=== PATIENT | female | born 1995 | race Caucasian/White ===

== ENCOUNTER 2018-04-23 03:37 | Inpatient (IN) | payer MEDICAID, OTHER, SELFPAY ==
[2018-04-23 04:17] VITALS: BMI 25.9
[2018-04-23] MEDS ORDERED: Lidocaine 1% (PF) 30 ML VIAL SC PRN (05:00)
[2018-04-23] MEDS ORDERED: Ondansetron PF 4 MG/2 ML Vial IVP PRN (05:00)
[2018-04-23] MEDS ORDERED: Promethazine HCl 25 MG/ML VIAL IM PRN (05:00)
--- NOTE | 2018-04-23 05:04 | PDOC.FPROB ---
FMR OB H&P: HPI - History of Present Illness Chief Complaint: Contractions and LOF History of Present Illness: This is a 22 yo at 40.3 who presents to L&D with a cc of contractions and LOF. She states the contractions started at ~0100 this morning and are strong. She reports LOF at ~0200. She denies vaginal bleeding, chest pain, trouble breathing, nausea, or vomiting. She denies any complications during her . FMR OB H&P: Current - Care : 1 Para: 0 Gestational age: 40.3 Due date: 04/20/18 Dating Criteria: LMP c/w 10.4 wk US - OB Labs Blood type: O RH: positive Antibody Screen: negative HIV: negative RPR: negative HepBsAg: negative Rubella: immune GBS: negative FMR OB H&P: History - Past Medical History PMH: none - OB History OB History: No complications - Social History Social History: Denies D/A/T - Family History Family History: Negative FMR OB H&P: Medications - Current Home Medications: Medication Instructions Recorded Confirmed Type Ferrous Sulfate [Iron] 325 mg PO DAILY 04/23/18 04/23/18 History 21/Iron Fu/Folic Acid 1 tablet PO DAILY 04/23/18 04/23/18 History [ Complete Caplet] Ranitidine HCl [Heartburn Relief 150 mg PO DAILY 04/23/18 04/23/18 History 150] Allergies/Adverse Reactions: Allergies Allergy/AdvReac Type Severity Reaction Status Date / Time No Known Allergies Allergy Verified 04/23/18 04:06 FMR OB H&P: ROS - Review of Systems General: denies: fever/chills, weight/appetite/sleep changes Eyes: denies: eye pain, vision changes ENT: denies: nasal congestion, rhinorrhea Cardiovascular: denies: chest pain, palpitation Respiratory: denies: cough, shortness of breath Gastrointestinal: denies: abdominal pain, indigestion, nausea, vomiting Genitourinary (Female): reports: contractions. denies: incontinence, dysuria Musculoskeletal: denies: pain, stiffness Neurologic: denies: numbness, syncope, loss of counsciousness Integumentary: denies: itching, rash Psychological: denies: depression, anxiety FMR OB H&P: Vital Signs - Maternal Vital signs: Vital Signs - First Documented Temp Pulse Resp BP 98.2 F 81 18 126/75 04/23/18 04:03 04/23/18 04:03 04/23/18 04:03 04/23/18 04:03 - Heart Tones Baseline: 140 Variability: moderate Acceleration: present Deceleration: absent Category: category 1 [place] contractions every: 5-7 minutes FMR OB H&P: Physical Exam - Physical Exam General: NAD, awake, alert and oriented HEENT: normocephalic and atraumatic, EOMI, MMM Neck: FROM, no JVD Chest: non-tender to palpation, no lesions Heart: RRR, normal S1/S2, no murmurs/rubs/gallops, pulses present General: CTAB, no respiratory distress, good air movement, no wheezing Abdomen: soft, gravid, non-tender, bowel sound present Musculoskeletal: pulses present, FROM in all four extremities Neurological: cranial nerves II through XII intact Skin: no rash, good tugor Lymphatic: no unusual bruising or bleeding, no purpura Psychiatric: intact recent and remote memory, good judgement and insight, normal mood and affect - Pelvic Exam SVE: 1/100/-2 with copious clear fluid during check Borrego score: 5 FMR OB H&P: A/P - Problem List (1) Term Current Visit: Yes Status: Acute Code(s): Z34.80 - ENCOUNTER FOR SUPRVSN OF NORMAL , UNSP TRIMESTER Assessment and Plan: This is a 22 yo at 40.3 by LMP c/W 10.4 wk US -Pt. is admitted to L&D. Pt. was 1/100/-2 at 04:23. Baseline FHTs were 140 with a cat 1 strip. Contractions are currently every 5-7 minutes. We will plan to let her labor and recheck in 3-4 hours. If she has not progressed or continues to have inadequate contractions, we will begin augmenting her labor with pitocin. Discussion: Date/Time: 04/23/18 3247 This H&P was discussed with Dr. Middleton and Dr. Oreilly who agree with the above documentation and plan. Attending Addendum - Attending Addendum Date/Time: 04/23/18 0346 I evaluated the patient and discussed the management with Dr. Redmond. at 40 weeks with SROM at 2AM, now with [facility]. GBS negative. Will admit, augment if needed. I agree with the History, Examination, Assessment and Plan documented above.
[2018-04-23 05:17] LABS: Mean Corpuscular HGB CONC 32.4 g/dL (32.0-36.0); Mean Corpuscular Hemoglobin 30.6 pg (25.0-35.0); Mean Corpuscular Volume 94.5 fL (78.0-98.0); Mean Platelet Volume 7.8 fL (7.4-10.4); Platelet Count 197 thou/uL (130-400); RBC Distribution Width 12.5 % (11.5-14.5); Red Blood Cell (RBC) Count 4.24 mill/uL (4.00-5.20); White Blood Cell (WBC) Count 10.2 thou/uL (4.8-10.8)
[2018-04-23] MEDS: Lactated Ringer's 1,000 ML IV SCH ×2 (07:00→12:37)
--- NOTE | 2018-04-23 08:39 | PDOC.LDPN ---
Labor & Delivery Progress Note - Subjective Subjective: painful contractions - Objective Vital signs reviewed and normal: yes General: breathing through contractions Uterine fundus: non tender Dilation: 3 Effacement: 100% Station: -2 FHT: category 1 (140/moderate/+ accels/no decels) [place] contractions every: 5-7min - Assessment (1) Term Code(s): Z34.80 - ENCOUNTER FOR SUPRVSN OF NORMAL , UNSP TRIMESTER Current Visit: Yes Status: Acute Plan: labor augmentation -: 22 yo at 40.3 by LMP c/w 10.4wk sIUP - SROM @0200 04/23/18, clear fluid - last cervical check /-2 @0830 - FHTs Cat 1 rate 140 - Will start Pitocin for labor augmentation as contractions are currently irregular - Starting Stadol for pain control. Pt declined epidural. - Continue serial cervical checks with recheck in 2 hours Rubella Non-immune - Plan for MMR pp RPR + with neg T pallidum antibodies x2 Previous SGA fetus - 17%tile @32wks. 29%tile @36.2wks Anemia of - On iron supplementation - H&H:
[2018-04-23] MEDS ORDERED: NS w/ Oxytocin 10 units 500 ML IV SCH (09:00)
[2018-04-23] MEDS ORDERED: Butorphanol Tartrate 1 MG/ML VIAL SLOW IVP PRN (09:30)
[2018-04-23] MEDS ORDERED: Butorphanol Tartrate 1 MG/ML VIAL ONE (09:33)
--- NOTE | 2018-04-23 10:35 | PDOC.LDPN ---
Labor & Delivery Progress Note - Subjective Subjective: painful contractions - Objective Vital signs reviewed and normal: yes General: breathing through contractions Uterine fundus: non tender Dilation: 4 Effacement: 100% Station: -2 FHT: category 1 (150/moderate/+ accels/no decels) [place] contractions every: 2-4min AROM: clear fluid - Assessment (1) Term Code(s): Z34.80 - ENCOUNTER FOR SUPRVSN OF NORMAL , UNSP TRIMESTER Current Visit: Yes Status: Acute Plan: continue plan of care, labor augmentation -: 22 yo at 40.3 by LMP c/w 10.4wk US sIUP - SROM @0200 04/23/18, clear fluid - last cervical check /-2 @1030 - FHTs Cat 1 rate 150 - Continue Pitocin for labor augmentation - Continue Stadol for pain control. Pt declined epidural. - Continue serial cervical checks with recheck in 2 hours Rubella Non-immune - Plan for MMR pp RPR + with neg T pallidum antibodies x2 Previous SGA fetus - 17%tile @32wks. 29%tile @36.2wks Anemia of - On iron supplementation - H&H:
--- NOTE | 2018-04-23 12:28 | PDOC.LDPN ---
Labor & Delivery Progress Note - Subjective Subjective: painful contractions - Objective Vital signs reviewed and normal: yes General: breathing through contractions Uterine fundus: non tender Dilation: 8 Effacement: 100% Station: 0 FHT: category 1 (130/moderate/+ accels/no decels) [place] contractions every: 2min AROM: clear fluid - Assessment (1) Term Code(s): Z34.80 - ENCOUNTER FOR SUPRVSN OF NORMAL , UNSP TRIMESTER Current Visit: Yes Status: Acute Plan: continue plan of care, labor augmentation -: 22 yo at 40.3 by LMP c/w 10.4wk sIUP - SROM @0200 04/23/18, clear fluid - last cervical check 100/0 @1230 - FHTs Cat 1 rate 130 - Continue Pitocin for labor augmentation - Continue Stadol for pain control. Pt declined epidural. - Continue serial cervical checks with recheck in 1 hour Rubella Non-immune - Plan for MMR pp RPR + with neg T pallidum antibodies x2 Previous SGA fetus - 17%tile @32wks. 29%tile @36.2wks Anemia of - On iron supplementation - H&H:
[2018-04-23] MEDS: NS / Oxytocin 40 units/1000ml 1,000 ML IV PRN ×2 (14:22→15:34)
--- NOTE | 2018-04-23 14:33 | PDOC.OPDEL ---
OB Operative/Delivery Note Delivery Dr/Surgeon: Dr Montague/Dr Aggarwal Assist: Attending: Dr Landa Pre-Delivery Diagnosis: active labor Procedure/Post Delivery Dx: spontaneous vaginal delivery Weeks gestation: 40 (40.3) Anesthesia: none - Additional Findings/Plan Placenta delivered: spontaneous Repaired Obstetrical Laceration: other (1st degree, no repair) Post delivery plan: routine recovery <Norma Montague - Last Filed: 04/23/18 14:33> Delivery Dr/Surgeon: <Juan Landa - Last Filed: 04/24/18 08:24> Attending Addendum - Attending Addendum Date/Time: 04/24/18 0820 I was present for and supervised the entire second and third stages of labor. PT delivered a female infant on 04/23/18 at 14:14 by uncomplicated tsvd. [id number]/ [id number]. Placenta delivered spontaneously followed by pitocin infustion. QBL was 180cc. There was a 1' perineal laceration hemostatic unrepaired. Dr Juares was the resident delivering. Counts were correct. Mother and baby were stable in the room in the immediate post . <Juan Landa - Last Filed: 04/24/18 08:24>
[2018-04-23] MEDS ORDERED: Milk Of Magnesia 30 ML UDCUP PO PRN (17:29)
[2018-04-23] MEDS ORDERED: Bisacodyl 10 MG SUPP PR PRN (17:29)
[2018-04-23] MEDS ORDERED: NS / Oxytocin 40 units/1000ml 1,000 ML IV SCH (17:29)
[2018-04-23] MEDS: Ferrous Sulfate 325 MG TAB PO SCH (18:33)
[2018-04-23] MEDS: Ibuprofen 800 MG TAB PO SCH (18:50)
[2018-04-23] MEDS: Docusate Calcium (SURFAK) 240 MG CAP PO SCH (22:06)
[2018-04-24] MEDS: Ibuprofen 800 MG TAB PO SCH ×3 (03:12→21:57)
--- NOTE | 2018-04-24 06:52 | PDOC.PP ---
Post Progress Note Post Day #: 1 Subjective: 22 yo who delivered ARABELLAA female @40.3 by on 04/24/18 at 1414. Pain controlled with Ibuprofen. Would like to try ice packs today. . Patient is ambulating, tolerating PO diet, voiding. Reports 5 pads with lochia since delivery. PO intake tolerated: yes Flatus: yes Ambulation: yes Vital Signs (12 hours) Temp Pulse Resp BP Pulse Ox 04/24/18 04:45 98.6 F 75 18 101/58 L 04/24/18 00:10 98.4 F 83 18 101/58 L 04/23/18 20:35 98.8 F 78 18 120/58 L 100 04/23/18 18:50 99.0 F 78 16 115/58 L 98 Weight Weight 64.41 kg - Physical Examination General: NAD Cardiovascular: no m/r/g, RRR Respiratory: clear to auscultation bilaterally, non-labored breathing Abdominal: + bowel sounds, lochia, appropriately TTP Deviation from normal: Unable to palpate fundus due to patient tolerance Psychiatric: A&Ox3, normal affect Result Diagrams: 04/23/18 04:57 Additional Labs: Post Labs Blood Type O POSITIVE 04/23/18 04:57 (1) Normal course Code(s): Z39.2 - ENCOUNTER FOR ROUTINE FOLLOW-UP Status: Acute - Assessment/Plan 22 yo who delivered MARGARETH female @40.3 by on 04/24/18 at 1414 Term s/p delivery - Encourage , ordered lanolin cream PRN - Continue Routine PP Care Rubella Non-immune - Plan for MMR pp RPR + with neg T pallidum antibodies x2
[2018-04-24] MEDS ORDERED: Lanolin Ointment 7 GM TUBE TOP PRN (08:19)
[2018-04-24] MEDS ORDERED: Lanolin Ointment 7 GM TUBE TOP SCH (09:00)
[2018-04-24] MEDS ORDERED: Adacel (T-DAP) 0.5 ML VIAL IM ONE (09:00)
[2018-04-24] MEDS: Ferrous Sulfate 325 MG TAB PO SCH ×2 (09:26→16:49)
[2018-04-24] MEDS: Docusate Calcium (SURFAK) 240 MG CAP PO SCH ×2 (09:37→21:57)
--- NOTE | 2018-04-24 13:52 | OP-2 ---
DELIVERING PHYSICIAN: Norma Montague, PGY-1; Yessenia Aggarwal, PGY-2. ATTENDING: Dr. Juan Landa. PROCEDURE: Spontaneous vaginal delivery. ANESTHESIA: None. EBL: 180 mL. PREOPERATIVE DIAGNOSES: 1. Term intrauterine . 2. Rubella nonimmune. 3. RPR positive with negative treponema pallidum antibodies x2. 4. Anemia of . POSTOPERATIVE DIAGNOSES: 1. Term intrauterine , delivered. 2. Rubella nonimmune. 3. RPR positive with negative treponema pallidum antibodies x2. 4. Anemia of . INDICATIONS: A 22-year-old female G1, P0, presents in active labor. DELIVERY NOTE: This is a 22-year-old female, G1, P0, now G1, P1 at 40.3 weeks, who delivered a viable female infant at 1414 on 04/23/2018. Following an uneventful antepartum course, a vigorous female was delivered over an intact perineum in the occiput anterior position, anterior shoulder and then remainder of the body delivered. No nuchal cord. The head was held down and mouth and nares were bulb suctioned. Cord clamped after delayed cord clamping and cut and cord blood collected. Placenta delivered intact in the [place] position with a 3-vessel cord noted. Fundal massage was performed and the fundus was firm. The cervix and vagina were inspected and found to have first degree midline perineal laceration and a small periurethral laceration, both were hemostatic and did not require repair. went to nursery in good condition for routine care. Apgars were 9 and 9 at 1 and 5 minutes respectively. The patient tolerated delivery well and went to after routine recovery care. I was present to supervise the entire second and third stages of labor. I agree with the above documentation. GAB
[2018-04-24 19:26] LABS: HBSAg Index 0.18 S/CO (0-0.99); Hep B Surf Ag Non-Reactive S/CO (NonReactive)
[2018-04-25] MEDS: Ibuprofen 800 MG TAB PO SCH ×2 (05:13→14:12)
--- NOTE | 2018-04-25 06:42 | PDOC.PP ---
Post Progress Note Post Day #: 2 Subjective: Pt is feeling well, voiding/stooling, reports breast feeding is going well. Pain is controlled with Ibuprofen. No questions or concerns this AM. PO intake tolerated: yes Flatus: yes Ambulation: yes Vital Signs (12 hours) Temp Pulse Resp BP Pulse Ox 04/24/18 20:00 98.6 F 77 16 117/59 L 98 Weight Weight 64.41 kg - Physical Examination General: NAD Cardiovascular: no m/r/g, RRR Respiratory: clear to auscultation bilaterally, non-labored breathing Abdominal: + bowel sounds, lochia, appropriately TTP Neurological: no gross focal deficits Psychiatric: A&Ox3, normal affect Result Diagrams: 04/23/18 04:57 Additional Labs: Post Labs Blood Type O POSITIVE 04/23/18 04:57 Hep Bs Antigen Non-Reactive S/CO (NonReactive) 04/23/18 04:57 (1) Normal course Code(s): Z39.2 - ENCOUNTER FOR ROUTINE FOLLOW-UP Status: Acute - Assessment/Plan 22 yo who delivered ARABELLAA female @40.3 by on 04/24/18 at 1414 Term s/p delivery - PPD #2 - Encourage , continue lanolin cream PRN - Continue Routine PP Care Rubella Non-immune - Plan for MMR pp RPR + with neg T pallidum antibodies x2 Dispo: Discharge to home or bed and breakfast today <Norma Montague - Last Filed: 04/25/18 07:52> Weight Weight 142 lb Result Diagrams: 04/23/18 04:57 Additional Labs: Post Labs Blood Type O POSITIVE 04/23/18 04:57 Hep Bs Antigen Non-Reactive S/CO (NonReactive) 04/23/18 04:57 Rubella IgG Antibody Less than 0.90 index (Immune >0.99) L 04/24/18 09:22 <Ana Maria Padilla - Last Filed: 04/28/18 21:06> Attending Addendum - Attending Addendum Date/Time: 04/28/182105 I personally evaluated the patient and discussed the management with Dr. Montague. I agree with the History, Examination, Assessment and Plan documented above. <Ana Maria Padilla - Last Filed: 04/28/18 21:06>
[2018-04-25] MEDS: Ferrous Sulfate 325 MG TAB PO SCH ×2 (07:29→15:13)
[2018-04-25 07:36] VITALS: BP 107/59; TEMP 98.4
[2018-04-25] MEDS: Docusate Calcium (SURFAK) 240 MG CAP PO SCH (09:05)
[2018-04-26 06:14] LABS: Measles (Rubeola) IgG AB Greater than 300.0 AU/mL (Immune >29.9); Rubella Virus IgG Less than 0.90 index (Immune >0.99)
== END 2018-04-25 16:15 | disposition home or self-care (01) | DRG 807 ==
LOC: L&D/OP 03:37 → L&D 04:50 → 3SW 17:45
PROVIDERS: ADMIT Obstetrics & Gynecology; ATTEND Obstetrics & Gynecology
PROC: 10E0XZZ Delivery of Products of Conception, External Approach (ICD-10-PCS; principal; 2018-04-23)
PROC: 0HQ9XZZ Repair Perineum Skin, External Approach (ICD-10-PCS; 2018-04-23)
DX: O99.02 Anemia complicating childbirth (principal); Z37.0 Single live birth; Z3A.40 40 weeks gestation of pregnancy; O70.0 First degree perineal laceration during delivery
CPT/HCPCS: 36415; 85027; 86735; 86762; 86765; 86850; 86900; 86901; 87340; 99285; J0595; J2001

== ENCOUNTER 2019-10-09 11:14 | Emergency (ER) | payer MEDICAID, OTHER | END 2019-10-09 13:45 | disposition home or self-care (01) | LOC: ERS 11:14 | DX: U07.1 COVID-19 (principal); J11.1 Influenza due to unidentified influenza virus with other respiratory manifestations | CPT/HCPCS: 87081; 87430; 87635; 87804; 99283; U0002 ==

== ENCOUNTER 2023-03-26 12:09 | Outpatient (CLI) | payer OTHER | END 2023-03-26 12:10 | disposition home or self-care (01) | LOC: RAD 12:09 | DX: Z01.818 Encounter for other preprocedural examination (principal) | CPT/HCPCS: 71046 ==